=== PATIENT | female | born 1985 | race Caucasian/White ===

== ENCOUNTER 2024-02-24 09:18 | Emergency (ER) | payer SELFPAY ==
[~2024-02-24] VITALS: Ht 165.1 cm; Wt 127.0 kg
[2024-02-24 09:51] LABS: SARS-CoV-2, RNA, NAAT NEGATIVE SARS CoV-2 (NEGATIVE)
[2024-02-24 09:57] LABS: INFLUENZA TYPE A Negative For Type A (NEGATIVE); INFLUENZA TYPE B Negative For Type B (NEGATIVE)
[2024-02-24 10:03] LABS: RAPID GROUP A STREP positive (NEGATIVE)
[2024-02-24] MEDS ORDERED: KETO10TA2 PO (10:15)
[2024-02-24] MEDS ORDERED: AMOX875T2 PO (10:15)
[2024-02-24 10:52] VITALS: BP 133/80; PULSE 98; RESP 20; O2SAT 99
[2024-02-24] MEDS: cefTRIAXone 1G VIAL IM ONE (11:05)
[2024-02-24] MEDS: acetaMINOPHEN 500 MG TABLET PO ONE (11:06)
[2024-02-24] MEDS: KETOROLAC 30MG VIAL (30MG/ML) IM ONE (11:06)
== END 2024-02-24 11:06 | disposition home or self-care (01) ==
LOC: EDH 09:18
DX: J02.0 Streptococcal pharyngitis (principal); Z20.822 Contact with and (suspected) exposure to COVID-19; Z79.899 Other long term (current) drug therapy
CPT/HCPCS: 99284; 87635; 87880; 87804 ×2; 96372 ×2; J0696; J1885